=== PATIENT | male | born 1950 | race Caucasian/White ===

== ENCOUNTER 2021-03-02 09:36 | Emergency (ER) | payer MEDICARE ==
[~2021-03-02] VITALS: Ht 180 cm; Wt 96.1 kg
--- OUTSIDE RECORDS SUMMARY | 2021-03-02 09:44 | XMS REPORT | Clinical Summary ---
Author Author [facility] Organization [facility] Address Unknown Phone Unavailable Care Team Providers Care Convention Services Director Name Role Phone PP Unavailable Allergies Not on File Medications Not on file Active Problems Not on file Encounters Care Team Description Date Type Specialty Bernice Vasquez NP Contact with and (suspected) exposure to covid-19 (Primary Dx); Encounter for observation for suspected exposure to other biological agents ruled out 12/17/2020 Office Visit Progress Notes - Odilia Montes RN - 12/17/2020 5:20 PM EDT [facility] Department of Health notified of results per regulations from Last 3 Months Social History Date Tobacco Use Types Packs/Day Years Used Never Assessed Sex Assigned at Date Recorded Not on file Last Filed Vital Signs Reading Time Taken Comments Vital Sign - - Blood Pressure 62 12/17/2020 2:47 PM EDT Pulse - - Temperature - - Respiratory Rate 97% 12/17/2020 2:47 PM EDT Oxygen Saturation - - Inhaled Oxygen Concentration - - Weight - - Height - - Body Mass Index Plan of Treatment Health Maintenance Due Date Last Done Comments Annual FOBT: Colon Cancer 2000 Screening Colonoscopy 2000 Procedures Comments Procedure Name Priority Date/Time Associated Diag nosis LUMIRADX SARS-COV-2 RAPID Routine 12/17/2020 Cont act with and RESULT ANTIGEN TEST 2:47 PM EDT (suspected) expos ure to covid-19 from Last 3 Months Results * LumiraDX SARS-COV-2 Rapid Result Antigen Test (12/17/2020 2:47 PM EDT) LumiraDX Negative Negative, Invalid POCT 2616 SARS-COV-2 Rapid Result Antigen Test INTERNAL Yes--Test working POCT 2616 CONTROLS VALID appropriately Expiration Date 01/31/2021 POCT 2616 Lot Number [id number] POCT 2616 Test Brand Lumiradx Sars-Cov-2 AG Test POCT 2 616 Name_Covid-19 Specimen Other Performing Organization Address City/State/ZIP Code P charles Number POCT [id number] [place], [place] [address] [address] from Last 3 Months Insurance Type Payer Benefit Subscriber ID Effective Phone Address Plan / Dates Group [facility] [employer] [id number] 2020- [facility] Present
[2021-03-02 10:18] LABS: BASOPHILS % (AUTO) 0 % (0-10); EOSINOPHILS # (AUTO) 0.1 10^3/uL (0.0-0.3); EOSINOPHILS % (AUTO) 2 % (0-10); HEMATOCRIT 34 % (40-54); HEMOGLOBIN 11.4 g/dL (13.3-17.7); LYMPHOCYTES # (AUTO) 1.5 10^3/uL (1.0-4.0); LYMPHOCYTES % (AUTO) 19 % (12-44); MEAN CORPUSCULAR HEMOGLOBIN 32 pg (25-34); MEAN CORPUSCULAR HGB CONC 34 g/dL (32-36); MEAN CORPUSCULAR VOLUME 96 fL (80-99); MONOCYTES # (AUTO) 0.8 10^3/uL (0.0-1.0); MONOCYTES % (AUTO) 9 % (0-12); NEUTROPHILS # (AUTO) 5.8 10^3/uL (1.8-7.8); NEUTROPHILS % (AUTO) 70 % (42-75); PLATELET COUNT 198 10^3/uL (130-400); WHITE BLOOD COUNT 8.2 10^3/uL (4.3-11.0)
[2021-03-02 10:36] LABS: ALBUMIN 3.7 GM/DL (3.2-4.5); POTASSIUM 4.1 MMOL/L (3.6-5.0)
[2021-03-02 10:37] LABS: CALCIUM 9.3 MG/DL (8.5-10.1)
[2021-03-02 10:39] LABS: PROTHROMBIN TIME PATIENT 13.8 SEC (12.2-14.7); TOTAL PROTEIN 6.1 GM/DL (6.4-8.2)
[2021-03-02 10:40] LABS: BILIRUBIN,TOTAL 1.2 MG/DL (0.1-1.0)
[2021-03-02 10:42] LABS: CREATININE SERUM 1.17 MG/DL (0.60-1.30)
[2021-03-02 12:24] LABS: BILIRUBIN,URINE NEGATIVE (NEGATIVE); CLARITY,URINE CLEAR; COLOR,URINE YELLOW; GLUCOSE, URINE (UA) NEGATIVE (NEGATIVE); KETONES,URINE TRACE (NEGATIVE); LEUKOCYTE ESTERASE ,URINE NEGATIVE (NEGATIVE); NITRITE,URINE NEGATIVE (NEGATIVE); PROTEIN,URINE NEGATIVE (NEGATIVE)
[2021-03-02 12:35] LABS: BACTERIA,URINE NEGATIVE /HPF
[2021-03-02 12:36] LABS: URIC ACID CRYSTALS,URINE FEW /LPF
--- NOTE | 2021-03-02 12:47 | ED GI ---
General Chief Complaint: Abdominal/GI Problems Stated Complaint: DARK/BLOODY STOOLS Nursing Triage Note: PT PRESENTS TO ED VIA POV FROM HOME WITH COMPLAINTS OF EPISODES OF DARK BLOODY STOOLS STARTING MONDAY THE . PT DENIES N/V OR ABDOMINAL PAIN. Past Jhdawsu-Zgrnfs-Aaftxi Hx Patient Social History Tobacco Use?: No Smoking Status: Never a Smoker Substance use?: No Alcohol Use?: No Pt feels they are or have been: No Immunizations Up To Date First/Initial COVID19 Vaccinat: 07/26 Second COVID19 Vaccination Jose: 07/26 COVID19 Vaccine Director Quality Assurance: KEHINDE Past Medical History Surgery/Hospitalization HX: PMH: HIGH CHOLESTEROL, GERD, GOUT SX: R ROTATER CUFF, HERNIA REPAIR X2, HEART CATH- NO STENT Physical Exam Vital Signs Vital Signs - First Documented 03/02/21 09:45 Temp 36.0 Pulse 64 Resp 18 B/P (MAP) 165/86 (112) Pulse Ox 98 Capillary Refill : Less Than 3 Seconds Height/Weight/BMI Height: '" Weight: lbs. oz. kg; 29.00 BMI Method: Progress/Results/Core Measures Results/Orders Lab Results Laboratory Tests Test 03/02/21 10:09 03/02/21 12:15 Range/Units White Blood Count 8.2 4.3-11.0 10^3/uL Red Blood Count 3.56 L 4.30-5.52 10^6/uL Hemoglobin 11.4 L 13.3-17.7 g/dL Hematocrit 34 L 40-54 % Mean Corpuscular Volume 96 80-99 fL Mean Corpuscular Hemoglobin 32 25-34 pg Mean Corpuscular Hemoglobin Concent 34 32-36 g/dL Red Cell Distribution Width 13.2 10.0-14.5 % Platelet Count 198 130-400 10^3/uL Mean Platelet Volume 9.0 9.0-12.2 fL Immature Granulocyte % (Auto) 0 % Neutrophils (%) (Auto) 70 42-75 % Lymphocytes (%) (Auto) 19 12-44 % Monocytes (%) (Auto) 9 0-12 % Eosinophils (%) (Auto) 2 0-10 % Basophils (%) (Auto) 0 0-10 % Neutrophils # (Auto) 5.8 1.8-7.8 10^3/uL Lymphocytes # (Auto) 1.5 1.0-4.0 10^3/uL Monocytes # (Auto) 0.8 0.0-1.0 10^3/uL Eosinophils # (Auto) 0.1 0.0-0.3 10^3/uL Basophils # (Auto) 0.0 0.0-0.1 10^3/uL Immature Granulocyte # (Auto) 0.0 0.0-0.1 10^3/uL Prothrombin Time 13.8 12.2-14.7 SEC INR Comment 1.0 0.8-1.4 Activated Partial Thromboplast Time 30 24-35 SEC Sodium Level 141 135-145 MMOL/L Potassium Level 4.1 3.6-5.0 MMOL/L Chloride Level 110 H 98-107 MMOL/L Carbon Dioxide Level 23 21-32 MMOL/L Anion Gap 8 5-14 MMOL/L Blood Urea Nitrogen 23 H 7-18 MG/DL Creatinine 1.17 0.60-1.30 MG/DL Estimat Glomerular Filtration Rate 62 BUN/Creatinine Ratio 20 Glucose Level 101 70-105 MG/DL Calcium Level 9.3 8.5-10.1 MG/DL Corrected Calcium 9.5 8.5-10.1 MG/DL Total Bilirubin 1.2 H 0.1-1.0 MG/DL Aspartate Amino Transf (AST/SGOT) 13 5-34 U/L Alanine Aminotransferase (ALT/SGPT) 17 0-55 U/L Alkaline Phosphatase 67 40-136 U/L C-Reactive Protein High Sensitivity 0.66 H 0.00-0.50 MG/DL Total Protein 6.1 L 6.4-8.2 GM/DL Albumin 3.7 3.2-4.5 GM/DL Lipase 25 8-78 U/L Urine Color YELLOW Urine Clarity CLEAR Urine pH 6.0 5-9 Urine Specific [place] 1.020 1.016-1.022 Urine Protein NEGATIVE NEGATIVE Urine Glucose (UA) NEGATIVE NEGATIVE Urine Ketones TRACE H NEGATIVE Urine Nitrite NEGATIVE NEGATIVE Urine Bilirubin NEGATIVE NEGATIVE Urine Urobilinogen 0.2 < = 1.0 MG/DL Urine Leukocyte Esterase NEGATIVE NEGATIVE Urine RBC (Auto) NEGATIVE NEGATIVE Urine RBC NONE /HPF Urine WBC NONE /HPF Urine Squamous Epithelial Cells NONE /HPF Urine Crystals PRESENT H /LPF Urine Uric Acid Crystals FEW H /LPF Urine Bacteria NEGATIVE /HPF Urine Casts NONE /LPF Urine Mucus SMALL H /LPF Urine Culture Indicated NO My Orders Orders - YAKELIN ALFONSO MD Cbc With Automated Diff (03/02/21 09:57) Comprehensive Metabolic Panel (03/02/21 09:57) Hs C Reactive Protein (03/02/21 09:57) Lipase (03/02/21 09:57) Ua Culture If Indicated (03/02/21 09:57) Ed Iv/Invasive Line Start (03/02/21 09:57) Protime With Inr (03/02/21 09:57) Partial Thromboplastin Time (03/02/21 09:57) Fecal Occult Bedside (03/02/21 09:57) Vital Signs/I&O 03/02/21 09:45 Temp 36.0 Pulse 64 Resp 18 B/P (MAP) 165/86 (112) Pulse Ox 98 Blood Pressure Mean: 112 Departure Impression Primary Impression: Rectal bleeding Disposition: 01 HOME, SELF-CARE Condition: Stable Departure-Patient Inst. Decision time for Depature: 12:44 Referrals: NO,LOCAL PHYSICIAN (PCP) Primary Care Physician Patient Instructions: Gastrointestinal Bleeding Add. Discharge Instructions: Continue taking omeprazole and Pepcid (famotidine) as prescribed. Adhere to a noncarbonated clear liquid diet for the next 24 hours. Drink plenty of clear liquids as you appear to be a bit dry with concentrated urine. Gradually advance your diet with small quantities of bland food starting tomorrow around noon. Follow-up with your primary care provider soon as possible. Return to the nearest ER or call 911 if you have worsening symptoms including escalating bleeding, increasing pain, fevers, vomiting, lightheadedness, shortness of breath, etc. Avoid NSAID medications such as naproxen, ibuprofen, aspirin, etc. as they may worsen your bleeding. You may use Tylenol (acetaminophen) up to 1000 mg every 6 hours as needed for pain if necessary. Call with questions or concerns All discharge instructions reviewed with patient and/or family. Voiced understanding. YAKELIN ALFONSO MD Mar 02, 2021 12:47
[2021-03-02 12:50] VITALS: BP 144/76
== END 2021-03-02 12:50 | disposition home or self-care (01) ==
LOC: ER 09:41
DX: K62.5 Hemorrhage of anus and rectum (principal)
CPT/HCPCS: 36415; 80053; 81000; 82274; 83690; 85025; 85610; 85730; 86141